=== PATIENT | male | born 1950 | race Caucasian/White ===

== ENCOUNTER 2021-12-04 10:39 | Inpatient (IN) | payer OTHER ==
[~2021-12-04] VITALS: Ht 160 cm; Wt 29.5 kg
[2021-12-04] MEDS ORDERED: PIPERACILLIN/TAZOBACTAM 3.375GM/50ML PREMIX IV ONE (11:15)
[2021-12-04] MEDS ORDERED: VANCOMYCIN 1 G PREMIX 200 ML IV SCH (11:15)
[2021-12-04] MEDS ORDERED: ACETAMINOPHEN 325MG TABLET PO ONE (11:15)
[2021-12-04] MEDS ORDERED: PIPERACILLIN/TAZ 3.375G PREMIX 50 ML IV NR (12:00)
[2021-12-04 14:08] LABS: CHLORIDE 102 mEq/L (98-107)
[2021-12-04 14:14] LABS: HEMATOCRIT. 27.2 % (42.0-52.0); HEMOGLOBIN. 8.8 g/dL (14.0-18.0); MEAN CORPUSCULAR HEMOGLOBIN 30.3 pg (28.0-32.0); MEAN CORPUSCULAR VOLUME 93.7 fL (80.0-94.0); MEAN PLATELET VOLUME 6.8 fl (7.4-10.4); PLATELET 512 x1000/uL (130-400)
[2021-12-04 14:49] LABS: PLATELET ESTIMATE INCREASED
[2021-12-04] MEDS ORDERED: LIDOCAINE HCL 1% 20ML VIAL (Pyxis) INJ INFIL NR (15:00)
[2021-12-04] MEDS ORDERED: POVIDONE-IODINE 10% TOPICAL SOLN 240ML TOP NR (15:00)
[2021-12-04] MEDS ORDERED: ONDANSETRON HCL 4MG/2ML INJ IV PRN (15:30)
[2021-12-04] MEDS ORDERED: DEXTROSE 50% WATER 50ML SYRINGE IV PRN (15:30)
[2021-12-04 15:52] LABS: TOTAL IRON BINDING CAPACITY 147 ug/dL (250-450)
[2021-12-04] MEDS ORDERED: VANCOMYCIN 1500MG in DEXTROSE 5% WATER 250ML IV NR (17:00)
[2021-12-04] MEDS: BLOOD SUGAR DIAGNOSTIC STRIP TEST SCH ×2 (17:00→21:16)
[2021-12-04] MEDS: INSULIN LISPRO 100 UNITS/ML SUBCUT SCH (18:20)
[2021-12-05] MEDS: PIPERACILLIN/TAZOBACTAM 3.375 G in DEXTROSE 5% WATER 50 ML IV SCH ×3 (02:11→14:00)
[2021-12-05] MEDS: INSULIN LISPRO 100 UNITS/ML SUBCUT SCH ×4 (07:00→21:00)
[2021-12-05] MEDS: BLOOD SUGAR DIAGNOSTIC STRIP TEST SCH ×4 (07:28→21:00)
[2021-12-05] MEDS ORDERED: CYAN100T43 MT (10:35)
[2021-12-05 11:03] VITALS: BP 141/54
[2021-12-05 12:00] VITALS: BP 157/75
[2021-12-05] MEDS ORDERED: POVIDONE-IODINE 10% TOPICAL SOLN 240ML TOP NR (12:00)
[2021-12-05] MEDS: ACETAMINOPHEN 325MG TABLET PO PRN (12:10)
[2021-12-05 12:20] LABS: HEMOGLOBIN. 8.1 g/dL (14.0-18.0); MEAN CORPUSCULAR HEMOGLOBIN 31.4 pg (28.0-32.0); MEAN CORPUSCULAR VOLUME 92.7 fL (80.0-94.0); PLATELET 477 x1000/uL (130-400); RED BLOOD CELL COUNT 2.59 mill/uL (4.7-6.1); RED CELL DISTRIBUTION WIDTH 13.2 % (11.6-14.6)
[2021-12-05 12:48] LABS: CHLORIDE 106 mEq/L (98-107)
[2021-12-05] MEDS: CYANOCOBALAMIN 100MCG TABLET PO SCH (14:15)
[2021-12-05] MEDS ORDERED: NALOXONE HCL 0.4MG/ML VIAL IV PRN (14:30)
[2021-12-05] MEDS ORDERED: IOHEXOL-350 100 ML BOTTLE ONE (15:09)
[2021-12-05 16:00] VITALS: BP 141/69
[2021-12-05] MEDS: VANCOMYCIN 1 G PREMIX 200 ML IV SCH (17:25)
[2021-12-05 20:00] VITALS: BP 132/64
[2021-12-05] MEDS: HYDROCODONE/ACETAMINOPHEN 10/325MG TABLET PO PRN (22:35)
[2021-12-06] VITALS: BP 142/62
[2021-12-06 04:00] VITALS: BP 123/66
[2021-12-06] MEDS: PIPERACILLIN/TAZOBACTAM 3.375 G in DEXTROSE 5% WATER 50 ML IV SCH ×3 (05:57→22:12)
[2021-12-06] MEDS: BLOOD SUGAR DIAGNOSTIC STRIP TEST SCH ×4 (07:20→20:15)
[2021-12-06 07:24] LABS: BASOPHILS % 0.4 % (0.0-2.0); EOSINOPHILS % 1.2 % (0.0-5.0); HEMATOCRIT. 22.3 % (42.0-52.0); HEMOGLOBIN. 7.6 g/dL (14.0-18.0); LYMPHOCYTES % 8.6 % (20.0-50.0); MEAN CORPUSCULAR HEMOGLOBIN 31.7 pg (28.0-32.0); MEAN CORPUSCULAR VOLUME 93.5 fL (80.0-94.0); MEAN PLATELET VOLUME 6.8 fl (7.4-10.4); MONOCYTES % 9.2 % (2.0-8.0); NEUTROPHILS % 80.6 % (40.0-76.0); PLATELET 448 x1000/uL (130-400); RED BLOOD CELL COUNT 2.38 mill/uL (4.7-6.1); RED CELL DISTRIBUTION WIDTH 13.2 % (11.6-14.6)
[2021-12-06] MEDS: INSULIN LISPRO 100 UNITS/ML SUBCUT SCH ×4 (07:50→20:31)
[2021-12-06 08:00] VITALS: BP 152/63
[2021-12-06] MEDS: CYANOCOBALAMIN 100MCG TABLET PO SCH (09:45)
[2021-12-06] MEDS: SODIUM HYPOCHLORITE (0.25%) 480ML SOLUTION (HALF STRENGTH) TOP SCH (09:46)
[2021-12-06 12:00] VITALS: BP 142/60
[2021-12-06 15:04] LABS: PLATELET ESTIMATE INCREASED
[2021-12-06 16:00] VITALS: BP 138/64
[2021-12-06] MEDS ORDERED: LACTULOSE 20G/30ML UDC PO PRN (19:45)
[2021-12-06 20:00] VITALS: BP 110/55
[2021-12-06] MEDS: VANCOMYCIN 1 G PREMIX 200 ML IV SCH (20:15)
[2021-12-07] VITALS: BP 137/64
[2021-12-07 04:00] VITALS: BP 144/65
[2021-12-07] MEDS: PIPERACILLIN/TAZOBACTAM 3.375 G in DEXTROSE 5% WATER 50 ML IV SCH ×3 (05:09→22:53)
[2021-12-07] MEDS: BLOOD SUGAR DIAGNOSTIC STRIP TEST SCH ×4 (07:20→21:00)
[2021-12-07] MEDS: INSULIN LISPRO 100 UNITS/ML SUBCUT SCH ×4 (07:50→22:53)
[2021-12-07 08:00] VITALS: BP 136/53
[2021-12-07 10:26] LABS: MEAN CORPUSCULAR HEMOGLOBIN 30.9 pg (28.0-32.0); MEAN CORPUSCULAR VOLUME 92.6 fL (80.0-94.0); MEAN PLATELET VOLUME 6.5 fl (7.4-10.4); PLATELET 507 x1000/uL (130-400); RED BLOOD CELL COUNT 2.59 mill/uL (4.7-6.1); RED CELL DISTRIBUTION WIDTH 13.2 % (11.6-14.6)
[2021-12-07] MEDS: DOCUSATE SODIUM 250MG CAPSULE PO SCH (10:53)
[2021-12-07] MEDS: CYANOCOBALAMIN 100MCG TABLET PO SCH (10:53)
[2021-12-07 12:00] VITALS: BP 135/61
[2021-12-07] MEDS: SODIUM HYPOCHLORITE (0.25%) 480ML SOLUTION (HALF STRENGTH) TOP SCH (13:47)
[2021-12-07] MEDS: VANCOMYCIN 1 G PREMIX 200 ML IV SCH (13:48)
[2021-12-07] MEDS: HYDROCODONE/ACETAMINOPHEN 10/325MG TABLET PO PRN (14:28)
[2021-12-07 16:00] VITALS: BP 119/55
[2021-12-07 20:00] VITALS: BP_SYST 117; BP_SYST 138; BP_DIAS 57; BP_DIAS 60
[2021-12-08] VITALS: BP 161/74
[2021-12-08] MEDS ORDERED: SODIUM CHLORIDE 0.45% 1,000 ML IV SCH
[2021-12-08] MEDS: DEXT 5%/0.45% NACL KCL 20MEQ/L 1,000 ML IV SCH ×3 (03:02→18:45)
[2021-12-08 04:00] VITALS: BP 129/63
[2021-12-08] MEDS: PIPERACILLIN/TAZOBACTAM 3.375 G in DEXTROSE 5% WATER 50 ML IV SCH ×3 (05:52→23:18)
[2021-12-08] MEDS ORDERED: CLONIDINE 0.1MG TABLET PO PRN (06:15)
[2021-12-08] MEDS ORDERED: LIDOCAINE HCL 1% 20ML VIAL (Pyxis) INJ ONE ×2 (07:01→10:54)
[2021-12-08] MEDS ORDERED: BACITRACIN 15GM TUBE TOP ONE (07:02)
[2021-12-08] MEDS ORDERED: BUPIVACAINE HCL 0.5% (5MG/ML) 50ML ONE (07:02)
[2021-12-08] MEDS ORDERED: POLYMYXIN B SULFATE 500000 UNITS/VIAL ONE (07:02)
[2021-12-08 07:18] LABS: HEMATOCRIT. 22.2 % (42.0-52.0); HEMOGLOBIN. 7.5 g/dL (14.0-18.0); MEAN CORPUSCULAR HEMOGLOBIN 31.1 pg (28.0-32.0); MEAN CORPUSCULAR VOLUME 92.5 fL (80.0-94.0); MEAN PLATELET VOLUME 6.1 fl (7.4-10.4); PLATELET 449 x1000/uL (130-400); RED CELL DISTRIBUTION WIDTH 13.2 % (11.6-14.6)
[2021-12-08] MEDS: BLOOD SUGAR DIAGNOSTIC STRIP TEST SCH ×4 (07:20→21:00)
[2021-12-08 07:46] LABS: INR 1.1; PROTHROMBIN TIME 12.2 sec (9.6-11.0)
[2021-12-08] MEDS: INSULIN LISPRO 100 UNITS/ML SUBCUT SCH ×4 (07:50→23:22)
[2021-12-08 08:00] VITALS: BP 144/52
[2021-12-08] MEDS ORDERED: FENTANYL CITRATE/PF 50MCG/ML 2ML VIAL ONE ×2 (08:34→11:34)
[2021-12-08] MEDS ORDERED: PROPOFOL 200MG/20ML VIAL IV ONE (08:34)
[2021-12-08] MEDS ORDERED: MIDAZOLAM HCL 2 MG/2 ML VIAL ONE ×2 (08:34→11:35)
[2021-12-08] MEDS: CYANOCOBALAMIN 100MCG TABLET PO SCH (09:00)
[2021-12-08] MEDS: SODIUM HYPOCHLORITE (0.25%) 480ML SOLUTION (HALF STRENGTH) TOP SCH (09:00)
[2021-12-08] MEDS ORDERED: HYDROMORPHONE HCL/PF 2MG/ML CPJ IV PRN (09:00)
[2021-12-08] MEDS: DOCUSATE SODIUM 250MG CAPSULE PO SCH (09:00)
[2021-12-08] MEDS ORDERED: LABETALOL 5MG/ML SYR 20 MG/4 ML SYRINGE IV PRN (09:00)
[2021-12-08] MEDS ORDERED: MEPERIDINE HCL/PF 25MG/ML CPJ IV PRN (09:00)
[2021-12-08] MEDS ORDERED: ONDANSETRON HCL 4MG/2ML INJ IV PRN (09:00)
[2021-12-08] MEDS ORDERED: DEXAMETHASONE 4MG/ML 1ML VIAL ONE (09:18)
[2021-12-08] MEDS ORDERED: EPHEDRINE SULFATE 50MG/ML VIAL ONE (09:18)
[2021-12-08] MEDS ORDERED: LIDOCAINE HCL 1% 10 MG/ML 10ML VIAL ONE (09:18)
[2021-12-08] MEDS ORDERED: SODIUM CHLORIDE 0.9% 10ML VIAL ONE (09:18)
[2021-12-08] MEDS ORDERED: ROPIVACAINE HCL 10MG/ML 20 ML VIAL EPI ONE (09:31)
[2021-12-08] MEDS ORDERED: HEPARIN SODIUM 1,000 UNIT/1ML VIAL IV ONE ×3 (09:49→14:04)
[2021-12-08 10:11] LABS: PLATELET ESTIMATE INCREASED
[2021-12-08 10:50] LABS: HEMATOCRIT 25.9 % (42.0-52.0); HEMOGLOBIN 8.6 g/dL (14.0-18.0)
[2021-12-08] MEDS ORDERED: IODIXANOL 320MG/ML 100 ML BOTTLE IV ONE (10:54)
[2021-12-08] MEDS ORDERED: IOHEXOL-300 100 ML BOTTLE ONE (11:53)
[2021-12-08] MEDS: VANCOMYCIN 1 G PREMIX 200 ML IV SCH (11:55)
[2021-12-08 12:00] VITALS: BP 135/61
[2021-12-08 14:30] LABS: PLATELET ESTIMATE INCREASED
[2021-12-08 16:00] VITALS: BP 138/68
[2021-12-09] VITALS: BP 128/61
[2021-12-09] MEDS: VANCOMYCIN 1 G PREMIX 200 ML IV SCH ×2 (02:48→20:39)
[2021-12-09] MEDS: PIPERACILLIN/TAZOBACTAM 3.375 G in DEXTROSE 5% WATER 50 ML IV SCH ×2 (05:25→13:29)
[2021-12-09] MEDS: BLOOD SUGAR DIAGNOSTIC STRIP TEST SCH ×4 (07:20→20:29)
[2021-12-09 08:00] VITALS: BP 138/69
[2021-12-09] MEDS: SODIUM HYPOCHLORITE (0.25%) 480ML SOLUTION (HALF STRENGTH) TOP SCH (09:00)
[2021-12-09] MEDS: INSULIN LISPRO 100 UNITS/ML SUBCUT SCH ×4 (09:01→20:40)
[2021-12-09] MEDS: DOCUSATE SODIUM 250MG CAPSULE PO SCH (09:03)
[2021-12-09] MEDS: CYANOCOBALAMIN 100MCG TABLET PO SCH (09:03)
[2021-12-09] MEDS: ACETAMINOPHEN 325MG TABLET PO PRN (09:05)
[2021-12-09 12:00] VITALS: BP 133/67
[2021-12-09 15:42] LABS: BASOPHILS % 0.2 % (0.0-2.0); EOSINOPHILS % 1.4 % (0.0-5.0); HEMATOCRIT. 25.1 % (42.0-52.0); HEMOGLOBIN. 8.5 g/dL (14.0-18.0); LYMPHOCYTES % 12.5 % (20.0-50.0); MEAN CORPUSCULAR HEMOGLOBIN 31.3 pg (28.0-32.0); MEAN CORPUSCULAR VOLUME 92.2 fL (80.0-94.0); MEAN PLATELET VOLUME 6.1 fl (7.4-10.4); MONOCYTES % 14.1 % (2.0-8.0); NEUTROPHILS % 71.8 % (40.0-76.0); PLATELET 448 x1000/uL (130-400); RED BLOOD CELL COUNT 2.72 mill/uL (4.7-6.1); RED CELL DISTRIBUTION WIDTH 13.4 % (11.6-14.6)
[2021-12-09 16:00] VITALS: BP 152/75
[2021-12-09 20:00] VITALS: BP 137/59
[2021-12-10] VITALS: BP 120/68
[2021-12-10 04:00] VITALS: BP 136/74
[2021-12-10] MEDS: BLOOD SUGAR DIAGNOSTIC STRIP TEST SCH ×4 (06:24→20:39)
[2021-12-10] MEDS: ACETAMINOPHEN 325MG TABLET PO PRN (06:52)
[2021-12-10 08:00] VITALS: BP 150/70
[2021-12-10] MEDS: INSULIN LISPRO 100 UNITS/ML SUBCUT SCH ×4 (08:53→21:04)
[2021-12-10] MEDS: CYANOCOBALAMIN 100MCG TABLET PO SCH (08:54)
[2021-12-10] MEDS: DOCUSATE SODIUM 250MG CAPSULE PO SCH (08:54)
[2021-12-10] MEDS: SODIUM HYPOCHLORITE (0.25%) 480ML SOLUTION (HALF STRENGTH) TOP SCH (09:00)
[2021-12-10 12:00] VITALS: BP 135/61
[2021-12-10 16:00] VITALS: BP 146/72
[2021-12-10 20:00] VITALS: BP 116/69
[2021-12-11] VITALS: BP 120/66
[2021-12-11 04:00] VITALS: BP 162/72
[2021-12-11] MEDS: ACETAMINOPHEN 325MG TABLET PO PRN (05:22)
[2021-12-11] MEDS: BLOOD SUGAR DIAGNOSTIC STRIP TEST SCH ×3 (06:27→17:20)
[2021-12-11] MEDS: INSULIN LISPRO 100 UNITS/ML SUBCUT SCH ×3 (07:50→17:50)
[2021-12-11 08:00] VITALS: BP 135/69
[2021-12-11] MEDS: SODIUM HYPOCHLORITE (0.25%) 480ML SOLUTION (HALF STRENGTH) TOP SCH (09:00)
[2021-12-11] MEDS: DOCUSATE SODIUM 250MG CAPSULE PO SCH (09:00)
[2021-12-11] MEDS: CYANOCOBALAMIN 100MCG TABLET PO SCH (09:44)
[2021-12-11 12:00] VITALS: BP 127/75
[2021-12-11 16:00] VITALS: BP 137/64
[2021-12-11 18:54] VITALS: BP 137/64
== END 2021-12-11 19:50 | disposition home health service (06) | DRG 853 ==
LOC: ER 10:39 → MICUSO 13:46 → EDBEDREQ 14:49 → 6EST 12-05 09:52
PROVIDERS: ADMIT Internal Medicine; ATTEND Internal Medicine
PROC: 0KBW0ZZ Excision of Left Foot Muscle, Open Approach (ICD-10-PCS; principal; 2021-12-04)
PROC: 047L3ZZ Dilation of Left Femoral Artery, Percutaneous Approach (ICD-10-PCS; 2021-12-08)
PROC: 047N3ZZ Dilation of Left Popliteal Artery, Percutaneous Approach (ICD-10-PCS; 2021-12-08)
PROC: 0Y6N0Z9 Detachment at Left Foot, Partial 1st Ray, Open Approach (ICD-10-PCS; 2021-12-08)
PROC: 04HK03Z Insertion of Infusion Device into Right Femoral Artery, Open Approach (ICD-10-PCS; 2021-12-08)
PROC: 04H Lower Arteries, Insertion (ICD-10-PCS; 2021-12-08)
PROC: B41GZZZ Fluoroscopy of Left Lower Extremity Arteries (ICD-10-PCS; 2021-12-08)
PROC: 30233N1 Transfusion of Nonautologous Red Blood Cells into Peripheral Vein, Percutaneous Approach (ICD-10-PCS; 2021-12-08)
DX: A41.9 Sepsis, unspecified organism (principal); E43 Unspecified severe protein-calorie malnutrition; Z68.1 Body mass index [BMI] 19.9 or less, adult; E11.52 Type 2 diabetes mellitus with diabetic peripheral angiopathy with gangrene; I96 Gangrene, not elsewhere classified; E11.621 Type 2 diabetes mellitus with foot ulcer; D64.9 Anemia, unspecified; L97.529 Non-pressure chronic ulcer of other part of left foot with unspecified severity; E11.42 Type 2 diabetes mellitus with diabetic polyneuropathy; Z20.822 Contact with and (suspected) exposure to COVID-19; S91.302A Unspecified open wound, left foot, initial encounter; X58.XXXA Exposure to other specified factors, initial encounter; F17.210 Nicotine dependence, cigarettes, uncomplicated; E11.51 Type 2 diabetes mellitus with diabetic peripheral angiopathy without gangrene; Y93.89 Activity, other specified; Y92.89 Other specified places as the place of occurrence of the external cause; Y99.8 Other external cause status
CPT/HCPCS: 36415; 37224; 71045; 73590; 73630; 73718; 75635; 75710; 80048; 80053; 80202; 82962; 83036; 83540; 83550; 85014; 85018; 85025; 85347; 85651; 86141; 86850; 86900; 86920; 87070; 87075; 87426; 88311; 93005; 93923; 93971; 99285; C1760; C1769; C1887; C1893; C1894; J1100; J1644; J1815; J2250; J2405; J2543; J2704; J2795; J3010; J3370; J3490; J7040; J7060; P9016; Q9967

== ENCOUNTER 2023-08-03 15:27 | Inpatient (IN) | payer OTHER ==
[~2023-08-03] VITALS: Ht 160 cm; Wt 68.0 kg
[~2023-08-03 15:27] MED LIST: CYAN100T43 MT
[2023-08-03] MEDS ORDERED: SODIUM CHLORIDE 0.9% 1,000 ML IV ONE (16:30)
[2023-08-03 16:57] LABS: HEMATOCRIT. 33.5 % (42.0-52.0); HEMOGLOBIN. 11.1 g/dL (14.0-18.0); MEAN CORPUSCULAR HEMOGLOBIN 31.1 pg (28.0-32.0); MEAN CORPUSCULAR HGB CONC 33.1 g/dL (31.0-37.0); MEAN CORPUSCULAR VOLUME 94.2 fL (80.0-94.0); MEAN PLATELET VOLUME 6.7 fl (7.4-10.4); PLATELET 297 x1000/uL (130-400); RED BLOOD CELL COUNT 3.56 mill/uL (4.7-6.1); RED CELL DISTRIBUTION WIDTH 13.6 % (11.6-14.6); WHITE BLOOD COUNT 12.5 x1000/uL (4.5-11.0)
[2023-08-03 17:01] LABS: DIFFERENTIAL COMMENT 1
[2023-08-03 17:05] LABS: CALCIUM 8.2 mg/dL (8.5-10.1); CHLORIDE 106 mEq/L (98-107); INDEX HEMOLYSI 1 (1-3); INDEX ICTERIC 1 (1-4); INDEX LIPEMIC 1 (1-3); POTASSIUM 4.1 mEq/L (3.5-5.1); SODIUM 134 mEq/L (136-145)
[2023-08-03 17:13] LABS: ALANINE AMINOTRANSFERASE 17 IU/L (13-61); ALBUMIN 3.1 g/dL (3.4-5.0); ASPARTATE AMINOTRANSFERASE 17 IU/L (15-37); BILIRUBIN TOTAL 0.5 mg/dL (0.1-1.0); CARBON DIOXIDE 22 mEq/L (21-32); CREATININE 1.8 mg/dL (0.6-1.3); GLUCOSE 186 mg/dL (70-105); PROTEIN TOTAL 7.2 g/dL (6.0-8.3); TROPONIN I HIGH SENSITIVITY 27 ng/L (<78); UREA NITROGEN BLOOD 24 mg/dL (7-21)
[2023-08-03 17:41] LABS: PLATELET ESTIMATE NORMAL
[2023-08-03 19:34] LABS: CLARITY URINE CLEAR (CLEAR); COLOR URINE YELLOW (YELLOW); GLUCOSE URINE NEGATIVE (NEGATIVE); KETONES URINE NEGATIVE (NEGATIVE); LEUKOCYTE ESTERASE URINE NEGATIVE (NEGATIVE); NITRITE URINE NEGATIVE (NEGATIVE); OCCULT BLOOD URINE 2+ (NEGATIVE); PH URINE 5.5 (4.5-8.0); PROTEIN URINE 3+ (NEGATIVE); SPECIFIC GRAVITY URINE 1.044 (1.005-1.030)
[2023-08-03 19:34] LABS: INDEX HEMOLYSI 1 (1-3)
[2023-08-03 19:37] LABS: BACTERIA URINE NONE SEEN; SQUAMOUS EPITHELIAL CELL URINE NONE SEEN /lpf (RARE/1+); WBC URINE 0-2 /hpf (0-2); YEAST URINE NONE SEEN
[2023-08-03 19:41] LABS: CREATINE KINASE 501 IU/L (39-308); NT PRO B-TYPE NATRIURETIC PEP 1918 pg/mL (5-125)
[2023-08-03] MEDS ORDERED: TETANUS, DIPHTHERIA, PERTUSSIS VAC/PF 0.5ML (>10YR OLD) IM ONE (21:30)
[2023-08-03] MEDS ORDERED: ACETAMINOPHEN 325MG TABLET PO ONE (22:15)
[2023-08-04] VITALS (7 sets, daily range): BP systolic 115–162; BP diastolic 56–104; PULSE 57–64; RESP 17–20; TEMP 97.4–98.4
[2023-08-04] MEDS: ASPIRIN 81MG TABLET PO SCH (10:14)
[2023-08-04] MEDS: ATORVASTATIN CALCIUM 20MG TABLET PO SCH ×2 (10:14→17:36)
[2023-08-04 10:53] LABS: BASOPHILS % 0.4 % (0.0-2.0); EOSINOPHILS % 0.4 % (0.0-5.0); HEMATOCRIT. 35.8 % (42.0-52.0); HEMOGLOBIN. 11.9 g/dL (14.0-18.0); LYMPHOCYTES % 14.6 % (20.0-50.0); MEAN CORPUSCULAR HEMOGLOBIN 31.5 pg (28.0-32.0); MEAN CORPUSCULAR HGB CONC 33.2 g/dL (31.0-37.0); MEAN CORPUSCULAR VOLUME 94.8 fL (80.0-94.0); MEAN PLATELET VOLUME 6.7 fl (7.4-10.4); MONOCYTES % 10.1 % (2.0-8.0); NEUTROPHILS % 74.5 % (40.0-76.0); PLATELET 322 x1000/uL (130-400); RED BLOOD CELL COUNT 3.78 mill/uL (4.7-6.1); RED CELL DISTRIBUTION WIDTH 13.3 % (11.6-14.6); WHITE BLOOD COUNT 8.5 x1000/uL (4.5-11.0)
[2023-08-04] MEDS ORDERED: INFLUENZA VACCINE 05/PF 0.5 ML SYRINGE IM ONE (11:00)
[2023-08-04] MEDS ORDERED: PNEUMOCOCCAL 23-VAL P-SAC VAC 0.5 ML IM ONE (11:00)
[2023-08-04 11:05] LABS: POTASSIUM 3.8 mEq/L (3.5-5.1)
[2023-08-04 11:09] LABS: CALCIUM 8.8 mg/dL (8.5-10.1); CREATININE 1.5 mg/dL (0.6-1.3); PHOSPHORUS 3.6 mg/dL (2.5-4.9)
[2023-08-04] MEDS ORDERED: DEXTROSE 50% WATER 50ML SYRINGE IV PRN (12:30)
[2023-08-04] MEDS: BLOOD SUGAR DIAGNOSTIC STRIP TEST SCH ×3 (12:46→21:00)
[2023-08-04] MEDS: INSULIN LISPRO 100 UNITS/ML SUBCUT SCH ×2 (17:30→21:43)
[2023-08-04] MEDS: ACETAMINOPHEN 500MG TABLET PO PRN (21:40)
[2023-08-05] MEDS: ACETAMINOPHEN 500MG TABLET PO PRN ×2 (01:07→08:55)
[2023-08-05 04:00] VITALS: BP 134/68; PULSE 70; RESP 20; TEMP 98
[2023-08-05] MEDS: INSULIN LISPRO 100 UNITS/ML SUBCUT SCH ×2 (06:11→11:45)
[2023-08-05 08:00] VITALS: BP 131/59; PULSE 57; RESP 20; TEMP 98
[2023-08-05] MEDS: ATORVASTATIN CALCIUM 20MG TABLET PO SCH (08:55)
[2023-08-05] MEDS: ASPIRIN 81MG TABLET PO SCH (08:55)
[2023-08-05] MEDS: BLOOD SUGAR DIAGNOSTIC STRIP TEST SCH ×2 (08:58→13:00)
[2023-08-05 12:00] VITALS: BP 127/70; PULSE 64; RESP 18; TEMP 97.4
[2023-08-05 15:35] VITALS: BP 131/59; PULSE 57; TEMP 98; O2SAT 97
== END 2023-08-05 16:00 | disposition home or self-care (01) | DRG 73 ==
LOC: ER 15:27 → 4WST 21:32 → EDBEDREQ 22:43 → EDBEDREQTM 22:43 → ENRESERV 08-04 02:21
PROVIDERS: ADMIT Internal Medicine; ATTEND Internal Medicine
PROC: 0HQ1XZZ Repair Face Skin, External Approach (ICD-10-PCS; principal; 2023-08-03)
DX: G90.8 Other disorders of autonomic nervous system (principal); N17.0 Acute kidney failure with tubular necrosis; E44.1 Mild protein-calorie malnutrition; E87.1 Hypo-osmolality and hyponatremia; I95.9 Hypotension, unspecified; E11.9 Type 2 diabetes mellitus without complications; S09.90XA Unspecified injury of head, initial encounter; D64.9 Anemia, unspecified; M25.551 Pain in right hip; M25.512 Pain in left shoulder; D72.829 Elevated white blood cell count, unspecified; Z79.4 Long term (current) use of insulin; Z68.26 Body mass index [BMI] 26.0-26.9, adult; W18.30XA Fall on same level, unspecified, initial encounter; Y93.89 Activity, other specified; Y92.89 Other specified places as the place of occurrence of the external cause; Y99.8 Other external cause status
CPT/HCPCS: 36415; 71045; 71275; 74174; 80048; 80053; 81003; 82150; 82550; 82962; 83880; 84100; 84145; 84484; 85025; 86850; 86900; 90686; 90715; 90732; 93005; 97162; 99285; J1815; J7030

== ENCOUNTER 2023-12-10 08:03 | Emergency (ER) | payer OTHER ==
[~2023-12-10] VITALS: Ht 165.1 cm; Wt 68.0 kg
[2023-12-10 08:17] VITALS: BP 138/85; PULSE 77; RESP 16; TEMP 98.2; O2SAT 97
== END 2023-12-10 09:36 | disposition home or self-care (01) ==
LOC: ER 08:03
DX: S80.01XA Contusion of right knee, initial encounter (principal); M25.561 Pain in right knee; E11.9 Type 2 diabetes mellitus without complications; W18.39XA Other fall on same level, initial encounter; Y93.89 Activity, other specified; Y92.89 Other specified places as the place of occurrence of the external cause; Y99.8 Other external cause status
CPT/HCPCS: 73562; 99283